=== PATIENT | female | born 1975 | race Asian ===

== ENCOUNTER 2018-11-13 13:23 | Emergency (ER) | payer BC ==
--- OUTSIDE RECORDS SUMMARY | 2018-11-13 13:27 | XMS REPORT ---
:1975 [facility] Address [address] [place] [address] [address] Care Team Providers Name Role Phone Wayne Dill Unavailable Unavailable Problems This patient has no known problems. Allergies, Adverse Reactions, Alerts This patient has no known allergies or adverse reactions. Medications This patient has no known medications. Encounters Start End Encounter Admission Attending Care Care Encounter Date/Time Date/Time Type Type Clinicians Facility Department ID 2017-10-06 2017-10-06 Outpatient LUKE Dill [id number] 14:09:00 14:09:00 Wayne
[2018-11-13 14:39] LABS: BUN Blood Urea Nitrogen 8 mg/dL (7-18); Bicarbonate 24 mmol/L (21-32); Glucose Level 88 mg/dL (74-106); Potassium 3.4 mmol/L (3.5-5.1); Sodium Level 141 mmol/L (136-145); Troponin (Emerg Dept Use Only) < 0.02 ng/mL (0.0-0.045)
[2018-11-13 15:23] LABS: Urine Blood TRACE (NEG); Urine Glucose NEGATIVE (NEG); Urine Protein NEGATIVE (NEG); Urine Specific Gravity 1.005 (1.005-1.030)
--- NOTE | 2018-11-13 16:02 | RAD REPORT ---
EXAM DESCRIPTION: CT - Chest For Pe Angio - 11/13/2018 3:48 pm CLINICAL HISTORY: Left-sided chest pain, elevated D-dimer COMPARISON: None. TECHNIQUE: Dynamically enhanced 3 mm thick images of the chest were obtained during administration o f approximately 150mL Isovue 370 IV contrast. Coronal and oblique MIP reconstruction images were gene rated and reviewed. Exam utilizes a protocol to evaluate the pulmonary arterial tree. All CT scans are performed using dose optimization technique as appropriate and may include automated exposure control or mA/KV adjustment according to patient size. FINDINGS: No pulmonary emboli are identified. The aorta as imaged shows no acute or suspicious finding. No pericardial thickening or effusion. No infiltrate or mass in the lung parenchyma. No pleural effusion or pleural thickening. No mediastinal or hilar suspicious masses. No chest wall masses or abnormal axillary lymphadenopathy. No rib lesions. No suspicious finding in the uppermost abdomen. IMPRESSION: No pulmonary emboli identified. No other significant or suspicious findings.
--- NOTE | 2018-11-13 16:43 | EDPHYS ---
Physician Documentation [facility] Name: Bren Adorno Age: 43 yrs Sex: Female : 1975 Arrival Date: 11/13/2018 Time: 13:24 Bed 27 Private MD: Kenji Burger V ED Physician Mark Wallace HPI: 11/13 14:02 This 43 yrs old Female presents to ER via Ambulatory with complaints of Abnormal kb Lab Results. 14:03 The patient or guardian reports chest pain that is located primarily in the left kb lateral anterior chest and left lateral posterior chest. Onset: 1 week(s) ago. The pain does not radiate. Associated signs and symptoms: Pertinent positives: cough, Pertinent negatives: abdominal pain, diaphoresis, dizziness, headache, lower extremity pain, lower extremity swelling, lightheadedness, nausea, near syncope, palpitations, recent travel, shortness of breath, syncope, vomiting. The chest pain is described as aching. Duration: The patient or guardian reports a single episode, that is still ongoing. Modifying factors: The symptoms are alleviated by nothing. the symptoms are aggravated by cough, movement. Severity of pain: At its worst the pain was mild moderate in the emergency department the pain has improved. The patient has not experienced similar symptoms in the past. The patient has been recently seen by a physician: the patient's primary care provider, Dr. Burger. Pt states she had a bad cough a week ago and thought it caused her to break a rib. States she has had left lateral chest pain since then, worse with movement. Dr Burger called her today and told her to come to the ER for evaluation because her D-Dimer came back elevated. Pt reports her cough is better.. Historical: - Allergies: 13:35 PENICILLINS; hb 13:35 unknkown cough medicine; hb - Home Meds: 13:35 None [Active]; hb - PMHx: 13:35 None; hb - PSHx: 13:35 D \T\ C; ; hb - Immunization history:: Adult Immunizations up to date. - Social history:: Smoking status: Patient/guardian denies using tobacco. - Ebola Screening: : No symptoms or risks identified at this time. ROS: 14:02 Constitutional: Negative for fever, chills, and weight loss, ENT: Negative for injury, kb pain, and discharge, Neck: Negative for injury, pain, and swelling, Respiratory: Negative for shortness of breath, cough, wheezing, and pleuritic chest pain, Abdomen/GI: Negative for abdominal pain, nausea, vomiting, diarrhea, and constipation, Back: Negative for injury and pain, MS/Extremity: Negative for injury and deformity, Skin: Negative for injury, rash, and discoloration, Neuro: Negative for headache, weakness, numbness, tingling, and seizure. 14:02 Cardiovascular: Positive for chest pain, with cough, with movement, of the left lateral posterior chest and left lateral anterior chest. Exam: 14:02 Constitutional: This is a well developed, well nourished patient who is awake, alert, kb and in no acute distress. Head/Face: Normocephalic, atraumatic. ENT: Nares patent. No nasal discharge, no septal abnormalities noted. Tympanic membranes are normal and external auditory canals are clear. Oropharynx with no redness, swelling, or masses, exudates, or evidence of obstruction, uvula midline. Mucous membranes moist. Neck: Trachea midline, no thyromegaly or masses palpated, and no cervical lymphadenopathy. Supple, full range of motion without nuchal rigidity, or vertebral point tenderness. No Meningismus. Chest/axilla: Normal chest wall appearance and motion. Nontender with no deformity. No lesions are appreciated. Cardiovascular: Regular rate and rhythm with a normal S1 and S2. No gallops, murmurs, or rubs. Normal PMI, no JVD. No pulse deficits. Respiratory: Lungs have equal breath sounds bilaterally, clear to auscultation and percussion. No rales, rhonchi or wheezes noted. No increased work of breathing, no retractions or nasal flaring. Abdomen/GI: Soft, non-tender, with normal bowel sounds. No distension or tympany. No guarding or rebound. No evidence of tenderness throughout. Skin: Warm, dry with normal turgor. Normal color with no rashes, no lesions, and no evidence of cellulitis. MS/ Extremity: Pulses equal, no cyanosis. Neurovascular intact. Full, normal range of motion. Neuro: Awake and alert, GCS 15, oriented to person, place, time, and situation. Cranial nerves II-XII grossly intact. Motor strength 5/5 in all extremities. Sensory grossly intact. Cerebellar exam normal. Normal gait. Vital Signs: 13:34 BP 114 / 82; Pulse 88; Resp 16; Temp 97.8; Pulse Ox 100% on R/A; Pain 7/10; hb 15:14 BP 122 / 73; Pulse 70; Resp 18; Pulse Ox 98% on R/A; la1 MDM: 13:37 Patient medically screened. kb 14:01 Data reviewed: vital signs, nurses notes. Data interpreted: Pulse oximetry: on room air kb is 100 %. Interpretation: normal. 16:42 Counseling: I had a detailed discussion with the patient and/or guardian regarding: the kb historical points, exam findings, and any diagnostic results supporting the discharge/admit diagnosis, lab results, radiology results, the need for outpatient follow up, a family practitioner, to return to the emergency department if symptoms worsen or persist or if there are any questions or concerns that arise at home. 11/13 13:39 Order name: Basic Metabolic Panel; Complete Time: 14:41 kb 11/13 13:39 Order name: Troponin (emerg Dept Use Only); Complete Time: 14:41 kb 11/13 13:39 Order name: CT Chest For PE Angio; Complete Time: 16:10 kb 11/13 13:39 Order name: US Extremity Venous W Compression Cristopher; Complete Time: 16:47 kb 11/13 14:21 Order name: Urine Dipstick--Ancillary (enter results); Complete Time: 15:30 eb 11/13 14:22 Order name: Test, Serum; Complete Time: 15:30 kb 11/13 13:39 Order name: EKG; Complete Time: 13:39 kb 11/13 13:39 Order name: EKG - Nurse/Tech; Complete Time: 14:20 kb 11/13 13:39 Order name: IV Start; Complete Time: 14:20 kb Administered Medications: No medications were administered Disposition: 11/14 07:03 Co-signature as Attending Physician, Mark Wallace MD. rn Disposition: 11/13/18 16:42 Discharged to Home. Impression: Chest pain, unspecified. - Condition is Stable. - Discharge Instructions: Costochondritis, [id number], Nonspecific Chest Pain, [id number]. - Medication Reconciliation Form, Thank You Letter, Antibiotic Education, Prescription Opioid Use form. - Follow up: Emergency Department; When: As needed; Reason: Worsening of condition. Follow up: Kenji Burger MD; When: 2 - 3 days; Reason: Recheck today's complaints, Continuance of care, Re-evaluation by your physician. Signatures: Dispatcher [employer] EDMS Goldie Cat, UNIFORM CAP OPERATOR-C UNIFORM CAP OPERATOR-Ckb Mark Wallace MD MD rn Baxter, Heather, RN RN hb Vicente, Ronaldo, RN RN rv Corrections: (The following items were deleted from the chart) 11/13 17:02 16:42 11/13/2018 16:42 Discharged to Home. Impression: Chest pain, unspecified. rv Condition is Stable. Forms are Medication Reconciliation Form, Thank You Letter, Antibiotic Education, Prescription Opioid Use. Follow up: Emergency Department; When: As needed; Reason: Worsening of condition. Follow up: Kenji Burger; When: 2 - 3 days; Reason: Recheck today's complaints, Continuance of care, Re-evaluation by your physician. kb
--- NOTE | 2018-11-13 16:43 | ER ---
Nurse's Notes [facility] Name: Bren Adorno Age: 43 yrs Sex: Female : 1975 Arrival Date: 11/13/2018 Time: 13:24 Bed 27 Private MD: Kenji Burger V Diagnosis: Chest pain, unspecified Presentation: 11/13 13:32 Presenting complaint: Sent by Dr. Burger for elevated DDimer and left sided chest pain hb that began 1 week ago, pain got worse yesterday. Transition of care: patient was not received from another setting of care. Onset of symptoms was November 13, 2018. Risk Assessment: Do you want to hurt yourself or someone else? Patient reports no desire to harm self or others. Initial Sepsis Screen: Does the patient meet any 2 criteria? No. Patient's initial sepsis screen is negative. Does the patient have a suspected source of infection? No. Patient's initial sepsis screen is negative. Care prior to arrival: None. 13:32 Method Of Arrival: Ambulatory hb 13:32 Acuity: JANNETTE 3 hb Historical: - Allergies: 13:35 PENICILLINS; hb 13:35 unknkown cough medicine; hb - Home Meds: 13:35 None [Active]; hb - PMHx: 13:35 None; hb - PSHx: 13:35 D \T\ C; ; hb - Immunization history:: Adult Immunizations up to date. - Social history:: Smoking status: Patient/guardian denies using tobacco. - Ebola Screening: : No symptoms or risks identified at this time. Screenin:15 Abuse screen: Denies threats or abuse. Nutritional screening: No deficits noted. la1 Tuberculosis screening: No symptoms or risk factors identified. Fall Risk None identified. Assessment: 15:14 General: Appears in no apparent distress. Behavior is calm, cooperative. Pain: Denies la1 pain. Neuro: No deficits noted. Level of Consciousness is awake, alert, obeys commands. Cardiovascular: Denies chest pain, lightheadedness, palpitations, shortness of breath, Heart tones S1 S2 present Capillary refill < 3 seconds Patient's skin is warm and dry. Respiratory: Airway is patent Respiratory effort is even, unlabored, Respiratory pattern is regular, symmetrical, Breath sounds are clear bilaterally. Vital Signs: 13:34 BP 114 / 82; Pulse 88; Resp 16; Temp 97.8; Pulse Ox 100% on R/A; Pain 7/10; hb 15:14 BP 122 / 73; Pulse 70; Resp 18; Pulse Ox 98% on R/A; la1 ED Course: 13:24 Patient arrived in ED. as 13:24 Kenji Burger MD is Private Physician. as 13:33 Triage completed. hb 13:34 Arm band placed on. hb 13:37 Goldie Cat FNP-C is [facility]. kb 13:37 Mark Wallace MD is Attending Physician. kb 13:38 Shaan Dumas, RN is Primary Nurse. la1 14:05 Radiology exam delayed due to lab results not completed at this time. test kw1 not completed at this time. 14:21 EKG done, by ED staff. lt1 14:35 Radiology exam delayed due to lab results not completed at this time. (HCG) kw1 test not completed at this time. 14:52 Radiology exam delayed due to inCT. sg3 15:15 Call light in reach. Side rails up X 1. la1 15:15 Inserted saline lock: 22 gauge in right wrist, using aseptic technique. Blood collected.la1 15:47 CT completed. Patient tolerated procedure well. Patient taken to ultrasound. kw1 15:48 CT Chest For PE Angio In Process Unspecified. EDMS 16:18 US Extremity Venous W Compression Cristopher In Process Unspecified. EDMS 16:42 Kenji Burger MD is Referral Physician. kb 16:50 No provider procedures requiring assistance completed. IV discontinued, bleeding rv controlled, No redness/swelling at site. Pressure dressing applied. Administered Medications: No medications were administered Outcome: 16:42 Discharge ordered by MD. kb 16:50 Discharged to home ambulatory. rv 16:50 Condition: good 16:50 Discharge instructions given to patient, Instructed on discharge instructions, follow up and referral plans. Demonstrated understanding of instructions, follow-up care. 17:02 Patient left the ED. rv Signatures: Dispatcher [employer] EDMS Goldie Cat FNP-C FNP-Susan Curran as Shaan Dumas RN RN la1 Ruba Pinedo RN RN Asuncion Hunter kw1 Meg Blackburn sg3 Charlie Spence RN RN rv Smith, Kim lt1
--- NOTE | 2018-11-13 16:45 | RAD REPORT ---
EXAM DESCRIPTION: US - Extrem Venous W Compress Cristopher - 11/13/2018 4:17 pm CLINICAL HISTORY: Leg pain and swelling Preliminary findings provided at time of the study. COMPARISON: None. TECHNIQUE: Real-time sonographic evaluation of the bilateral lower extremity common femoral, superfi cial femoral, popliteal and posterior tibial veins was performed. FINDINGS: Normal compressibility, flow augmentation, phasic flow and spontaneous flow are identified in the left and right lower extremity common femoral, superficial femoral, popliteal and posterior t ibial veins. No intraluminal filling defects seen. IMPRESSION: No DVT in either lower extremity.
--- NOTE | 2018-11-14 07:06 | EKG ---
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
== END 2018-11-13 17:02 | disposition home or self-care (01) ==
LOC: ER 13:23
DX: R07.9 Chest pain, unspecified (principal); Z88.0 Allergy status to penicillin; Z88.8 Allergy status to other drugs, medicaments and biological substances
CPT/HCPCS: 36415; 71275; 80048; 81003; 84484; 84703; 93005; 93970; 99284; Q9967